=== PATIENT | female | born 1985 | race Caucasian/White ===

== ENCOUNTER 2020-11-19 10:18 | Emergency (ER) | payer OTHER ==
[~2020-11-19] VITALS: Ht 170.2 cm; Wt 59.0 kg
[2020-11-19] MEDS ORDERED: MEDROLDOSEPACK PO (11:06)
[2020-11-19] MEDS ORDERED: APAP W/CODEINE1 TA2 PO (11:06)
[2020-11-19] MEDS ORDERED: PROAIR HFA8.5 GM INH (11:06)
[2020-11-19 11:16] VITALS: BP 128/79
== END 2020-11-19 11:17 | disposition home or self-care (01) ==
LOC: M.ERS 10:18
DX: J06.9 Acute upper respiratory infection, unspecified (principal); Z20.822 Contact with and (suspected) exposure to COVID-19; Z98.51 Tubal ligation status

== ENCOUNTER 2020-12-23 23:15 | Inpatient (IN) | payer OTHER ==
[~2020-12-23] VITALS: Ht 175.3 cm; Wt 57.2 kg
[~2020-12-23 23:15] MED LIST: APAP W/CODEINE1 TA2 PO; MEDROLDOSEPACK PO; PROAIR HFA8.5 GM INH
[2020-12-23 23:33] VITALS: BP 137/95
[2020-12-23 23:55] LABS: HEMOGLOBIN 15.4 gm/dL (12.0-15.0); MCH 31.6 pg (26.0-34.0); MCHC 34.3 g/dL (28.0-37.0); MPV 9.5 fl. (7.2-11.1); NUCLEATED RBCS 0 /100WBC; PLATELET COUNT* 347 thou/uL (150-400); RBC 4.89 mil/uL (4.20-5.00); RDW-CV 13.6 % (10.5-14.5); WBC 12.3 thou/uL (4.0-11.0)
[2020-12-24] LABS: CALCIUM 8.9 mg/dL (8.5-10.1); CREATININE 0.7 mg/dL (0.6-1.3); POTASSIUM 3.9 mmol/L (3.5-5.1)
[2020-12-24 00:02] LABS: PROTIME 10.4 Seconds (9.20-11.50)
[2020-12-24 00:09] LABS: BE -5.8 mmol/L (-2 to +3); PCO2 38.7 mmHg (35.0-45.0); pH 7.323 (7.340-7.450)
[2020-12-24 00:10] LABS: PO2 346.3 mmHg (75.0-100.0)
[2020-12-24 00:11] LABS: ALBUMIN 3.8 g/dL (3.4-5.0); MAGNESIUM 1.6 mg/dL (1.8-2.4); TOTAL BILIRUBIN 0.7 mg/dL (<0.1-1.0); TOTAL PROTEIN 7.8 g/dL (6.4-8.2)
[2020-12-24 01:14] LABS: ABSOLUTE BASOPHILS 0.1 thou/uL (0.0-0.2); ABSOLUTE EOSINOPHILS 1.7 thou/uL (0.0-0.7); ABSOLUTE LYMPHOCYTES 2.2 thou/uL (0.8-5.3); ABSOLUTE MONOCYTES 1.2 thou/uL (0.0-1.2); PLATELET ESTIMATE ADEQUATE
[2020-12-24 02:23] LABS: URINE BILIRUBIN NEGATIVE (Negative); URINE BLOOD NEGATIVE (Negative); URINE CLARITY CLEAR; URINE COLOR YELLOW; URINE GLUCOSE-RANDOM NEGATIVE (Negative); URINE LEUKOCYTES-REFLEX NEGATIVE (Negative); URINE NITRITE-REFLEX NEGATIVE (Negative); URINE PROTEIN NEGATIVE (Negative); URINE SPECIFIC GRAVITY 1.015 (1.005-1.030); URINE UROBILINOGEN 0.2 E.U./dl (0.2-1.0)
[2020-12-24 02:28] LABS: URINE KETONES 3+ (Negative)
[2020-12-24 03:03] LABS: INFLUENZA A ANTIGEN Negative (Negative); INFLUENZA B ANTIGEN Negative (Negative)
[2020-12-24 03:41] VITALS: BP 133/72
[2020-12-24] MEDS ORDERED: CLARITIN10 M3 PO (04:46)
[2020-12-24 08:00] VITALS: BP 119/55
--- NOTE | 2020-12-24 10:00 | EKG ---
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: MANISH : 1985 Requested By: Jen Arias Order Number: [id number] MD: Tushar Escamilla Measurements Intervals [place] Rate: 127 P: 86 IL: 143 QRS: 80 QRSD: 113 T: 66 QT: 311 QTc: 453 Interpretive Statements Sinus tachycardia Consider right atrial enlargement Borderline intraventricular conduction delay Borderline repolarization abnormality Artifact in lead(s) I,II,aVR,aVL No previous ECG available for comparison Electronically Signed On 12-24-2020 10:00:36 CDT by Tushar Escamilla [email or web address] <ELECTRONICALLY SIGNED> By: Tushar Escamilla MD, FACC 12/24/20 1000 [id number] 2331 Tushar Escamilla MD, FAC /EPI
[2020-12-24 12:31] VITALS: BP 109/63
[2020-12-24 16:07] VITALS: BP 121/70
--- NOTE | 2020-12-24 17:00 | CON ---
[address] [address] CONSULTATION Name: SOFI GRAHAM Room: [address] IN .R.#: [id number] Admission: 12/24/20 Attend Phys: Trudi Dee MD Discharge: Date of : 85 Report #: [id number] THIS REPORT FOR: cc: FAM - No family physician/PCP FAM - No family physician/PCP Cuco Rucker MD ~ DATE OF SERVICE: 12/24/2020 Consult has been requested Dr. Reyes. INDICATION FOR CONSULTATION: Shortness of breath. HISTORY OF PRESENT ILLNESS: A 35-year-old female. She states that she uses electronic cigarettes and also does use marijuana, only has a remote history of smoking as a teenager, otherwise has been a lifetime nonsmoker. She does not report any significant alcohol intake. The patient states that she has been getting more short of breath for the last 6 weeks. She has been seen in the Emergency Room at other hospitals and she reports that she has been given oral corticosteroids. She does not report that she was admitted to any other hospital. She also reports that she received an antibiotic from what she is describing she may have received azithromycin. The patient says that she initially got better with this therapy on a couple of occasions, but then subsequently got worse again. Shortness of breath has been progressively worsening, in particular for the last one week. The patient says that over the last one week, she has been getting progressively short of breath to the point that she no longer is able to talk in full sentences now and is acutely short of breath at rest. The patient also says that she has had some chest pain associated with respiration and coughing. She has had a cough. There is only a small amount of sputum, which she says is mostly clear. She does not have a runny nose or sore throat. She does not report swelling of lower extremities or calf pain, although she says that she has had some pain in her thighs. The patient says that she has been wheezing. She does appear to be very anxious. The patient answered to the negative for 12 other questions for review of systems except as mentioned above. PAST MEDICAL HISTORY: Some seasonal allergies, tubal ligation. SOCIAL HISTORY: Vaping/use of electronic cigarettes, also use of marijuana, only occasional alcohol intake. No other illegal drug use. CUR[facility] MEDICATIONS: [facility]. HOME MEDICATIONS: List in the [facility] also reviewed. Also, [place] [address] CONSULTATION Name: CLIVEMalikSOFI CABALLERO Room: [address]#: [id number] Admission: 12/24/20 Attend Phys: Trudi Dee MD Discharge: Date of : 85 Report #: [id number] ALLERGIES: No known drug allergies. FAMILY HISTORY: COPD. PHYSICAL EXAMINATION: GENERAL: The patient is short of breath at rest. She was audibly wheezing at the time of my evaluation. She also appeared to be anxious. She is significantly tachycardic. VITAL SIGNS: Heart rate of 130-135 and a sinus tachycardia rhythm. Blood pressure 119/55, respiratory rate was around 28-29. The patient did have some pursed lip breathing. The patient was not able to talk in full sentences. She was saturating 90-93% on 2 liters nasal cannula. Afebrile with a temperature of 36.8. HEENT: Head is normocephalic and atraumatic. Pupils are equal and reactive. There is no throat erythema. NECK: Does not show raised JVP, asymmetry, mass or lymph nodes. CHEST: Symmetrical expansion on inspection and palpation. She does appear to be tachypneic. There is some accessory muscle use. Breath sounds are bilaterally equal. There are loud inspiratory as well as expiratory wheezes heard. Some of these are peripheral; however, in addition, I also noticed wheezing from the upper airways, likely secondary to vocal cord dysfunction. HEART: Regular. There is significant tachycardia. No murmur. ABDOMEN: Soft and nontender. EXTREMITIES: Lower extremities show no edema, no calf tenderness. SKIN: Dry and intact. NEUROLOGICAL: Moves all extremities bilaterally equally and spontaneously with no focal deficit identified. LABORATORY DATA: The patient had a chest x-ray yesterday. There is also a CT chest performed today. In summary, there are patchy bilateral nodular infiltrates noted. The patient's lab work from last night, which shows leukocytosis without bandemia in [facility] reviewed. The patient's chemistries which are significant for a magnesium of 1.6, also in [facility] reviewed. ASSESSMENT AND PLAN: 1. Acute respiratory insufficiency/severe shortness of breath. The patient is actively bronchospastic. This is the etiology of her shortness of breath. The patient may have previously undiagnosed bronchial asthma. She likely has a component of vocal cord dysfunction as well. In addition, she has nodular infiltrates. 2. Severe acute bronchospasm/suspected bronchial asthma exacerbation. She is still actively bronchospastic. I agree with Solu-Medrol and in fact increased the dose. We will follow and adjust accordingly. Also, agree with Xopenex. [address] [address] CONSULTATION Name: SOFI GRAHAM Room: [address] IN [facility]#: [id number] Admission: 12/24/20 Attend Phys: Trudi Dee MD Discharge: Date of : 85 Report #: [id number] Whenever her heart rate improves, we will consider switching this over to DuoNeb, considering that there does appear to be a component of vocal cord dysfunction as well, which could acutely worsen with inhaled corticosteroids. I elected not to start an inhaled corticosteroids at this time. However, certainly the patient will benefit from inhaled corticosteroids later on and also ordered a Singulair. 3. Nodular pulmonary infiltrates. I agree with checking COVID-19 PCR; however, overall my suspicion at this time is low. These infiltrates are more consistent with either atypical or fungal etiology, non-inflammatory etiologies also do need to be considered as well. Certainly typical bacterial pneumonia can lead to this picture, although this is less likely. The patient is on azithromycin. I agree with the same. I will go ahead and add ceftriaxone. Urine for Legionella antigen as well as pneumococcal antigen and nasal swab for MRSA and sputum culture are already ordered and I agree with the same. I would like to also obtain serologies for mycoplasma and I will do a urine for histoplasma antigen as well. Certainly obtaining Fungitell as well as galactomannan levels can be considered. However, these are done around the time of several days; and therefore, I did not order these at this time. I will obtain an ERNA level as well as rheumatoid arthritis factor as well as an ANCA level. 4. Vocal cord dysfunction/suspected silent gastroesophageal reflux disease. On auscultation, some of the wheezes are from her trachea. This is consistent with vocal cord dysfunction. Acutely, the treatment is with corticosteroids. In addition, the patient may have silent gastroesophageal reflux as well, which may be worsening this; and therefore, I ordered a PPI b.i.d. as well. We will cut down to once a day once the patient's symptoms have improved. Later on as an outpatient, the patient may benefit from an ENT evaluation as well. 5. Hypomagnesemia. Recommend replacing through magnesium of 2.0 or higher. 6. Deep vein thrombosis prophylaxis. We will add Lovenox. 7. Clostridium difficile prophylaxis, Lactinex. Thanks for this consultation. <ELECTRONICALLY SIGNED> By: Cuco Rucker MD 12/24/20 1700 1215 [id number] Rucker MD /nt
[2020-12-25 00:11] VITALS: BP 111/57
[2020-12-25 04:41] LABS: ABSOLUTE LYMPHOCYTES 0.6 thou/uL (0.8-5.3); ABSOLUTE MONOCYTES 0.3 thou/uL (0.0-1.2); BASOPHILS 0.1 %; HEMATOCRIT 38.5 % (37.0-47.0); LYMPHOCYTES 6.4 %; MCH 31.5 pg (26.0-34.0); MCHC 34.1 g/dL (28.0-37.0); MCV 92.4 fL (80.0-100.0); MONOCYTES 2.9 %; MPV 9.4 fl. (7.2-11.1); NUCLEATED RBCS 0 /100WBC; POLYS 90.6 %; RBC 4.17 mil/uL (4.20-5.00); RDW-CV 13.1 % (10.5-14.5); WBC 8.9 thou/uL (4.0-11.0)
[2020-12-25 04:49] LABS: HEMOGLOBIN 13.1 gm/dL (12.0-15.0)
[2020-12-25 04:50] LABS: PLATELET COUNT* 270 thou/uL (150-400)
[2020-12-25 04:56] VITALS: BP 120/60
[2020-12-25 04:58] LABS: ALBUMIN 3.1 g/dL (3.4-5.0); CALCIUM 8.2 mg/dL (8.5-10.1); CREATININE 0.5 mg/dL (0.6-1.3); POTASSIUM 3.9 mmol/L (3.5-5.1); TOTAL BILIRUBIN 0.4 mg/dL (<0.1-1.0); TOTAL PROTEIN 6.4 g/dL (6.4-8.2)
[2020-12-25 08:00] VITALS: BP 139/67
[2020-12-25 11:56] VITALS: BP 87/57
[2020-12-25 20:38] VITALS: BP 122/61
[2020-12-25 23:18] VITALS: BP 122/56
[2020-12-26 03:46] LABS: ABSOLUTE LYMPHOCYTES 0.7 thou/uL (0.8-5.3); ABSOLUTE MONOCYTES 0.3 thou/uL (0.0-1.2); ABSOLUTE NEUTROPHILS 7.4 thou/uL (1.6-8.1); BASOPHILS 0.1 %; EOSINOPHILS 0.1 %; HEMATOCRIT 37.4 % (37.0-47.0); HEMOGLOBIN 12.6 gm/dL (12.0-15.0); LYMPHOCYTES 8.7 %; MCH 31.4 pg (26.0-34.0); MCHC 33.7 g/dL (28.0-37.0); MCV 92.9 fL (80.0-100.0); MONOCYTES 3.1 %; MPV 9.2 fl. (7.2-11.1); NUCLEATED RBCS 0 /100WBC; PLATELET COUNT* 258 thou/uL (150-400); RBC 4.03 mil/uL (4.20-5.00); RDW-CV 13.5 % (10.5-14.5); WBC 8.5 thou/uL (4.0-11.0)
[2020-12-26 04:28] LABS: ALBUMIN 3.1 g/dL (3.4-5.0); CALCIUM 8.2 mg/dL (8.5-10.1); CREATININE 0.6 mg/dL (0.6-1.3); MAGNESIUM 1.9 mg/dL (1.8-2.4); POTASSIUM 3.5 mmol/L (3.5-5.1); TOTAL BILIRUBIN 0.3 mg/dL (<0.1-1.0); TOTAL PROTEIN 6.5 g/dL (6.4-8.2)
[2020-12-26 05:35] VITALS: BP 118/57
[2020-12-26 08:00] VITALS: BP 120/59
[2020-12-26 12:00] VITALS: BP 114/66
[2020-12-26 16:00] VITALS: BP 108/56
[2020-12-26 19:32] VITALS: BP 131/42
[2020-12-27 00:11] VITALS: BP 113/75
[2020-12-27 04:51] VITALS: BP 128/71
[2020-12-27 08:00] VITALS: BP 127/69
[2020-12-27 09:06] LABS: ANTI-DNA SCREEN <1 IU/mL (0-9); ANTI-RNP <0.2 AI (0.0-0.9); ANTI-SSA <0.2 AI (0.0-0.9); ANTIJO-I AB <0.2 AI (0.0-0.9)
--- NOTE | 2020-12-27 11:17 | EKG ---
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
[2020-12-27 16:41] VITALS: BP 114/56
[2020-12-27 21:00] VITALS: BP 143/63
[2020-12-27 23:06] LABS: MYCOPLASMA PNEUMONIA IgM <770 U/mL (0-769)
[2020-12-28 02:06] LABS: MYCOPLASMA PNEUMONIA IgG 165 U/mL (0-99)
[2020-12-28 06:49] LABS: CALCIUM 9.3 mg/dL (8.5-10.1); CREATININE 0.7 mg/dL (0.6-1.3); MAGNESIUM 1.8 mg/dL (1.8-2.4); POTASSIUM 3.3 mmol/L (3.5-5.1)
[2020-12-28 07:50] VITALS: BP 144/64
[2020-12-28 16:07] VITALS: BP 109/42
[2020-12-28 21:00] VITALS: BP 115/63
[2020-12-29] MEDS ORDERED: PREDNISONE 10 M10 M1 PO (06:38)
[2020-12-29] MEDS ORDERED: CEFDINIR300 MG PO (06:38)
[2020-12-29] MEDS ORDERED: BREO ELLIPTA 11 EACH INH (06:41)
[2020-12-29] MEDS ORDERED: SINGULAIR 10 MG10 M1 PO (06:41)
[2020-12-29 08:25] VITALS: BP 124/70
[2020-12-29 15:22] VITALS: BP 115/41
[2020-12-29 21:30] VITALS: BP 109/63
[2020-12-30 05:12] LABS: ALBUMIN 3.3 g/dL (3.4-5.0); CREATININE 0.6 mg/dL (0.6-1.3); POTASSIUM 4.4 mmol/L (3.5-5.1); TOTAL BILIRUBIN 0.3 mg/dL (<0.1-1.0); TOTAL PROTEIN 6.9 g/dL (6.4-8.2)
[2020-12-30 07:40] VITALS: BP 116/60
[2020-12-30 13:07] VITALS: BP 124/65
--- NOTE | 2020-12-30 13:55 | EKG ---
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: : 1985 Requested By: Francine Rea Order Number: [id number] Reading MD: Tushar Escamilla Measurements Intervals [place] Rate: 98 P: 61 IL: 145 QRS: 22 QRSD: 94 T: 34 QT: 340 QTc: 435 Interpretive Statements Sinus rhythm Consider left ventricular hypertrophy Compared to ECG 12/25/2020 02:47:30 Sinus tachycardia no longer present Electronically Signed On 12-30-2020 13:55:45 CDT by Tushar Escamilla [email or web address] <ELECTRONICALLY SIGNED> By: Tushar Escamilla MD, [facility] 12/30/20 1355 1328 1328 Tushar Escamilla MD, [facility] /EPI
[2020-12-30 16:59] VITALS: BP 122/63
[2020-12-30 18:24] VITALS: BP 124/71
[2020-12-30 19:30] VITALS: BP 145/72
[2020-12-30 23:59] VITALS: BP 120/67
[2020-12-31 04:02] VITALS: BP 110/56
[2020-12-31 08:00] VITALS: BP 119/57
[2020-12-31 11:40] VITALS: BP 132/64
[2020-12-31] MEDS ORDERED: BUDESONIDE0.5 MG/2 M INH (13:23)
[2020-12-31] MEDS ORDERED: XOPENEX0.63 MG/3 INH (13:23)
[2020-12-31] MEDS ORDERED: NEBULIZER MISCELL (13:23)
[2020-12-31] MEDS ORDERED: PREDNISONE 10 M10 M1 PO (13:23)
[2020-12-31 14:49] VITALS: BP 132/64
[2020-12-31 15:09] VITALS: BP 132/64
[2020-12-31] MEDS ORDERED: XANAX 0.25 MG0.25 MG PO (17:32)
[2021-01-01] MEDS ORDERED: ALPRAZOLAM 0.0.25 M1 PO (08:24)
== END 2020-12-31 15:55 | disposition home or self-care (01) | DRG 205 ==
LOC: M.ERS 23:15 → M.TBA-ER 12-24 01:53 → M.2W 12-24 04:10 → M.ORTHSURG 12-27 13:38 → M.2W 12-30 10:18
PROVIDERS: Emergency Medicine; Internal Medicine; Internal Medicine Critical Care Medicine; ADMIT Family Medicine; ATTEND Family Medicine
DX: U07.0 Vaping-related disorder (principal); J96.01 Acute respiratory failure with hypoxia; J15.7 Pneumonia due to Mycoplasma pneumoniae; J12.89 Other viral pneumonia; S27.309A Unspecified injury of lung, unspecified, initial encounter; J45.901 Unspecified asthma with (acute) exacerbation; F12.90 Cannabis use, unspecified, uncomplicated; E83.42 Hypomagnesemia; K21.9 Gastro-esophageal reflux disease without esophagitis; E05.90 Thyrotoxicosis, unspecified without thyrotoxic crisis or storm; F41.9 Anxiety disorder, unspecified; F17.290 Nicotine dependence, other tobacco product, uncomplicated; X58.XXXA Exposure to other specified factors, initial encounter; Z20.822 Contact with and (suspected) exposure to COVID-19; Y93.89 Activity, other specified; Y92.89 Other specified places as the place of occurrence of the external cause; Y99.8 Other external cause status; Z79.899 Other long term (current) drug therapy

== ENCOUNTER 2021-03-01 08:54 | Emergency (ER) | payer OTHER ==
[~2021-03-01] VITALS: Ht 170.2 cm; Wt 61.2 kg
[~2021-03-01 08:54] MED LIST changes: +ALPRAZOLAM 0.0.25 M1 PO; +BREO ELLIPTA 11 EACH INH; +BUDESONIDE0.5 MG/2 M INH; +CEFDINIR300 MG PO; +CLARITIN10 M3 PO; +NEBULIZER MISCELL; +PREDNISONE 10 M10 M1 PO; +SINGULAIR 10 MG10 M1 PO; +XANAX 0.25 MG0.25 MG PO; +XOPENEX0.63 MG/3 INH
[2021-03-01] MEDS ORDERED: PREDNISONE 20 M20 M1 PO (09:25)
[2021-03-01 09:40] VITALS: BP 121/58
== END 2021-03-01 09:42 | disposition home or self-care (01) ==
LOC: M.ERS 08:54
DX: J45.901 Unspecified asthma with (acute) exacerbation (principal); Z98.51 Tubal ligation status; Z79.899 Other long term (current) drug therapy

== ENCOUNTER 2021-09-18 14:55 | Inpatient (IN) | payer OTHER, MEDICAID ==
[~2021-09-18] VITALS: Ht 170.2 cm; Wt 63.0 kg
[~2021-09-18 14:55] MED LIST changes: +DILTIAZEM HCL90 MG PO; +PREDNISONE 20 M20 M1 PO; +SEREVENT DISKU50 MCG INH
[2021-09-18 15:20] LABS: ABSOLUTE LYMPHOCYTES 1.6 thou/uL (0.8-5.3); MPV 8.9 fl. (7.2-11.1); NUCLEATED RBCS 0 /100WBC
[2021-09-18 15:21] LABS: ABSOLUTE BASOPHILS 0.1 thou/uL (0.0-0.2); ABSOLUTE EOSINOPHILS 1.1 thou/uL (0.0-0.7); ABSOLUTE MONOCYTES 0.9 thou/uL (0.0-1.2); ABSOLUTE NEUTROPHILS 11.5 thou/uL (1.6-8.1); BASOPHILS 0.4 %; EOSINOPHILS 7.6 %; HEMATOCRIT 42.3 % (37.0-47.0); HEMOGLOBIN 14.4 gm/dL (12.0-15.0); LYMPHOCYTES 10.3 %; MCH 30.9 pg (26.0-34.0); MCHC 34.1 g/dL (28.0-37.0); MCV 90.6 fL (80.0-100.0); MONOCYTES 5.7 %; PLATELET COUNT* 345 thou/uL (150-400); RBC 4.67 mil/uL (4.20-5.00); RDW-CV 13.6 % (10.5-14.5); WBC 15.1 thou/uL (4.0-11.0)
[2021-09-18 15:24] LABS: CALCIUM 8.9 mg/dL (8.5-10.1); CREATININE 0.7 mg/dL (0.6-1.3); POTASSIUM 3.9 mmol/L (3.5-5.1)
[2021-09-18 15:28] LABS: ALBUMIN 3.8 g/dL (3.4-5.0); TOTAL BILIRUBIN 0.6 mg/dL (<0.1-1.0); TOTAL PROTEIN 7.3 g/dL (6.4-8.2)
[2021-09-18 22:24] VITALS: BP 127/73
[2021-09-19] VITALS (7 sets, daily range): BP systolic 105–134; BP diastolic 54–80
[2021-09-19 06:19] LABS: HEMATOCRIT 36.4 % (37.0-47.0); MCH 30.6 pg (26.0-34.0); MCHC 34.1 g/dL (28.0-37.0); MCV 89.8 fL (80.0-100.0); MPV 9.2 fl. (7.2-11.1); RBC 4.05 mil/uL (4.20-5.00); RDW-CV 13.6 % (10.5-14.5); WBC 6.3 thou/uL (4.0-11.0)
[2021-09-19 06:31] LABS: HEMOGLOBIN 12.4 gm/dL (12.0-15.0)
[2021-09-19 06:35] LABS: ALBUMIN 3.1 g/dL (3.4-5.0); CALCIUM 8.4 mg/dL (8.5-10.1); CREATININE 0.6 mg/dL (0.6-1.3); MAGNESIUM 1.7 mg/dL (1.8-2.4); TOTAL BILIRUBIN 0.3 mg/dL (<0.1-1.0); TOTAL PROTEIN 6.2 g/dL (6.4-8.2)
--- NOTE | 2021-09-19 12:31 | EKG ---
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: CARIDAD : 1985 Requested By: Brian Perez Order Number: [id number] MD: Gray Perez Measurements Intervals [place] Rate: 124 P: 83 MA: 149 QRS: 36 QRSD: 102 T: -9 QT: 321 QTc: 461 Interpretive Statements Sinus tachycardia LAE, consider biatrial enlargement Artifact in lead(s) I,II,III,aVL,V1,V2,V6 Compared to ECG 05/04/2021 17:53:42 Right ventricular hypertrophy no longer present Electronically Signed On 09-19-2021 12:31:01 CONCRETE RUBBER by Gray Perez [email or web address] <ELECTRONICALLY SIGNED> By: Gray Perez MD, [facility] 09/19/21 1231 1522 1522 Gray Perez MD, [facility] /EPI
[2021-09-20 05:00] VITALS: BP 132/70
[2021-09-20 05:17] LABS: HEMATOCRIT 34.1 % (37.0-47.0); HEMOGLOBIN 11.6 gm/dL (12.0-15.0); MCH 30.9 pg (26.0-34.0); MCHC 34.2 g/dL (28.0-37.0); MCV 90.3 fL (80.0-100.0); MPV 9.3 fl. (7.2-11.1); RBC 3.77 mil/uL (4.20-5.00); RDW-CV 13.7 % (10.5-14.5); WBC 12.1 thou/uL (4.0-11.0)
[2021-09-20 05:51] LABS: CALCIUM 8.6 mg/dL (8.5-10.1); CREATININE 0.7 mg/dL (0.6-1.3); POTASSIUM 3.8 mmol/L (3.5-5.1)
[2021-09-20 08:00] VITALS: BP 121/70
[2021-09-20 12:00] VITALS: BP 116/68
[2021-09-20 16:00] VITALS: BP 113/64
[2021-09-20 20:00] VITALS: BP 116/79
[2021-09-21 04:41] LABS: HEMATOCRIT 34.5 % (37.0-47.0); HEMOGLOBIN 11.9 gm/dL (12.0-15.0); MCH 31.2 pg (26.0-34.0); MCHC 34.6 g/dL (28.0-37.0); MPV 9.1 fl. (7.2-11.1); RBC 3.83 mil/uL (4.20-5.00); RDW-CV 13.7 % (10.5-14.5); WBC 9.9 thou/uL (4.0-11.0)
[2021-09-21 04:56] LABS: CALCIUM 8.4 mg/dL (8.5-10.1); CREATININE 0.7 mg/dL (0.6-1.3); POTASSIUM 3.7 mmol/L (3.5-5.1)
[2021-09-21 08:00] VITALS: BP 124/77
[2021-09-21] MEDS ORDERED: ALPRAZOLAM0.5 M2 PO (09:20)
[2021-09-21] MEDS ORDERED: CEFDINIR300 MG PO (09:20)
[2021-09-21] MEDS ORDERED: DOXYCYCLINE 10100 MG PO (09:20)
[2021-09-21] MEDS ORDERED: PREDNISONE 10 M10 M1 PO (09:20)
[2021-09-21 13:43] VITALS: BP 124/77
[2021-09-21] MEDS ORDERED: VENTOLIN HFA 1818 GM INH (14:32)
== END 2021-09-21 15:30 | disposition home or self-care (01) | DRG 193 ==
LOC: M.ERS 14:55 → M.2W 16:28 → M.TBA-ER 16:28 → M.2W 09-19 22:23
PROVIDERS: Emergency Medicine Emergency Medical Services; ADMIT Internal Medicine; ATTEND Internal Medicine
DX: J18.9 Pneumonia, unspecified organism (principal); J96.01 Acute respiratory failure with hypoxia; J45.901 Unspecified asthma with (acute) exacerbation; D72.829 Elevated white blood cell count, unspecified; Z20.822 Contact with and (suspected) exposure to COVID-19; Z28.21 Immunization not carried out because of patient refusal; Z87.891 Personal history of nicotine dependence; Z79.899 Other long term (current) drug therapy